=== PATIENT | male | born 1985 | race Caucasian/White ===

== ENCOUNTER 2017-01-21 13:52 | Emergency (ER) | payer BC ==
[2017-01-21] MEDS ORDERED: IV NORMAL SALINE 1,000ML 1,000 ML IV ONE (14:15)
[2017-01-21] MEDS ORDERED: LORAZEPAM 2 MG/ML VIAL IV ONE (14:15)
[2017-01-21] MEDS ORDERED: IV DEXTROSE 5% - 0.9 % NACL 1,000 ML ONE (14:33)
--- NOTE | 2017-01-21 14:34 | ED.ADGEN ---
Past History Past Medical History: Anxiety, GERD Past Surgical History: Other Alcohol Use: None Drug Use: None Adult General HPI HPI Patient is a 31-year-old male presents emergency department by EMS with profound weakness. Patient strained for a half marathon and has not ran regularly for more than one week. Today he ran greater than 7 miles when he " ran out of steam." Once he got home he did try to take a few bites of peanut butter and drink some water. He also took half of Valium continued to feel as if he was getting ready to cramp or pass out. He denies any other recent illness. Denies any significant medical history other than the history of anxiety. Denies any chest pain or dyspnea. Review of Systems Review of Systems Constitutional: Denies fever or chills [] Eyes: Denies change in visual acuity, redness, or eye pain [] HENT: Denies nasal congestion or sore throat [] Respiratory: Denies cough or shortness of breath [] Cardiovascular: No additional information not addressed in HPI [] GI: Denies abdominal pain, nausea, vomiting, bloody stools or diarrhea [] : Denies dysuria or hematuria [] Musculoskeletal: Denies back pain or joint pain [] Integument: Denies rash or skin lesions [] Neurologic: Denies headache, focal weakness or sensory changes [] Endocrine: Denies polyuria or polydipsia [] Current Medications Current Medications Current Medications Medications (Trade) Dose Ordered Sig/Randy Start Time Stop Time Status Last Admin Dose Admin Dextrose/Sodium Chloride (Iv D5% - NS) 1,000 ml @ As Directed STK-MED ONCE 01/21/17 14:33 01/21/17 14:34 DC Lorazepam 1 mg 1 mg 1X ONCE 01/21/17 14:15 01/21/17 14:16 DC Sodium Chloride 1,000 ml @ 1,000 mls/hr 1X ONCE 01/21/17 14:15 01/21/17 15:14 DC 01/21/17 14:14 1,000 MLS/HR Allergies Allergies Allergies Coded Allergies Type Severity Reaction Last Updated Verified amoxicillin Allergy Intermediate rash 01/21/17 Yes NSAIDS (Non-Steroidal Anti-Inflamma Allergy Unknown SWELLING 01/21/17 Yes Sulfa (Sulfonamide Antibiotics) Allergy Unknown 01/21/17 Yes amphetamine Allergy Unknown 01/21/17 Yes aspirin Allergy Unknown 01/21/17 Yes dextroamphetamine Allergy Unknown 01/21/17 Yes fluoxetine Allergy Unknown 01/21/17 Yes lamotrigine Allergy Unknown 01/21/17 Yes lurasidone Allergy Unknown 01/21/17 Yes ziprasidone Allergy Unknown 01/21/17 Yes Physical Exam Physical Exam Constitutional: Well developed, well nourished, no acute distress, non-toxic appearance. [] HENT: Normocephalic, atraumatic, bilateral external ears normal, oropharynx moist, no oral exudates, nose normal. [] Eyes: PERRLA, EOMI, conjunctiva normal, no discharge. [] Neck: Normal range of motion, no tenderness, supple, no stridor. [] Cardiovascular:Heart rate regular rhythm, no murmur [] Lungs & Thorax: Bilateral breath sounds clear to auscultation [] Abdomen: Bowel sounds normal, soft, no tenderness, no masses, no pulsatile masses. [] Skin: Warm, dry, no erythema, no rash. [] Back: No tenderness, no CVA tenderness. [] Extremities: No tenderness, no cyanosis, no clubbing, ROM intact, no edema. [] Neurologic: Alert and oriented X 3, normal motor function, normal sensory function, no focal deficits noted. [] Psychologic: Affect normal, judgement normal, mood normal. [] Current Patient Data Vital Signs Vital Signs Date Time Temp Pulse Resp B/P Pulse Ox O2 Delivery O2 Flow Rate FiO2 01/21/17 13:52 97.9 95 18 100 Room Air Lab Results Laboratory Tests Test 01/21/17 14:13 Sodium Level 139mmol/L (136-145) Potassium Level 3.7mmol/L (3.5-5.1) Chloride Level 101mmol/L (98-107) Carbon Dioxide Level 25mmol/L (21-32) Anion Gap 13 (6-14) Blood Urea Nitrogen 16mg/dL (8-26) Creatinine 1.4mg/dL (0.7-1.3) H Estimated GFR (Cockcroft-Gault) 58.7 Glucose Level 101mg/dL (70-99) H Calcium Level 9.1mg/dL (8.5-10.1) Creatine Kinase 203U/L (39-308) EKG EKG EKG interpreted by me, NSR, 95 bpm, no STEMI, normal axis[] Radiology/Procedures Radiology/Procedures [] Course & Med Decision Making Course & Med Decision Making Pertinent Labs and Imaging studies reviewed. (See chart for details) Patient's lab values were all reassuring. He received a liter of normal saline as well as a liter of D5 and normal saline. Patient's feeling significantly better and ready for discharge. [] Final Impression Final Impression Dehydration and fatigue [] Problems: Dragon Disclaimer Dragon Disclaimer This electronic medical record was generated, in whole or in part, using a voice recognition dictation system. LUCIANO DRUMMOND MD Jan 21, 2017 14:34
[2017-01-21 14:35] LABS: CALCIUM 9.1 mg/dL (8.5-10.1); CREATININE 1.4 mg/dL (0.7-1.3); GFR 58.7; POTASSIUM 3.7 mmol/L (3.5-5.1)
[2017-01-21 14:55] VITALS: BP 108/68
[2017-01-21] MEDS ORDERED: IV DEXTROSE 5% - 0.9 % NACL 1,000 ML IV ONE (15:00)
--- NOTE | 2017-01-21 15:10 | EKG ---
[address] [address] Test Date: 2017-01-21 Test Time: 14:01:47 Pat Name: PHOEBE GERARD Department: Room: Gender: M Education Rep: ANGELY : 1985 Requested By: LUICANO DRUMMOND Order Number: [id number] Reading MD: Measurements Intervals [place] Rate: 95 P: 95 VT: 168 QRS: 47 QRSD: 94 T: 41 QT: 344 QTc: 435 Interpretive Statements SINUS RHYTHM NORMAL ECG RI6.01 Unconfirmed report No previous ECG available for comparison
== END 2017-01-21 15:35 | disposition home or self-care (01) ==
LOC: ER 13:52
DX: E86.0 Dehydration (principal); R53.83 Other fatigue; K21.9 Gastro-esophageal reflux disease without esophagitis; F41.9 Anxiety disorder, unspecified; Z88.1 Allergy status to other antibiotic agents; Z88.2 Allergy status to sulfonamides; Z88.6 Allergy status to analgesic agent; Z88.8 Allergy status to other drugs, medicaments and biological substances
CPT/HCPCS: 36415; 80048; 82550; 93005; 96360; 99285; J7042; J7030